=== PATIENT | female | born 1955 | race Hispanic/Latino ===

== ENCOUNTER 2020-07-22 10:15 | Inpatient (IN) | payer OTHER, MEDICARE ==
[~2020-07-22] VITALS: Ht 165.1 cm; Wt 68.9 kg
[2020-07-22 10:05] LABS: BASOPHILS % (AUTO) 0.4 % (0.0-5.0); EOSINOPHILS % (AUTO) 2.2 % (0.0-8.0); HEMATOCRIT 42.8 % (36-48); LYMPHOCYTES % (AUTO) 25.6 % (21.0-51.0); MEAN CORPUSCULAR HEMOGLOBIN 33.3 pg (27.0-33.0); MEAN CORPUSCULAR HGB CONC 34.8 g/dL (32.0-36.0); MEAN CORPUSCULAR VOLUME 95.5 fL (79-99); NEUTROPHILS % (AUTO) 64.4 % (40.0-77.0); PLATELET COUNT (AUTO) 109 K/uL (130-400); RED BLOOD CELL COUNT(AUTO) 4.48 MIL/uL (4.00-5.50); RED CELL DISTRIBUTION WIDTH 12.1 % (11.0-15.5); WHITE BLOOD COUNT (AUTO) 5.4 K/uL (4.8-10.8)
[2020-07-22 10:12] LABS: APPEARANCE,URINE Clear (CLEAR); BILIRUBIN,URINE Negative (NEGATIVE); COLOR,URINE Yellow (YELLOW); GLUCOSE, URINE (UA) >=1000 mg/dL (NEGATIVE); KETONES,URINE Negative (NEGATIVE); LEUKOCYTE ESTERASE ,URINE Trace (NEGATIVE); NITRATE,URINE Negative (NEGATIVE); OCCULT BLOOD,URINE Negative (NEGATIVE); PROTEIN,URINE Trace mg/dL (NEGATIVE)
[2020-07-22 10:14] LABS: BACTERIA,URINE Rare /HPF (None Seen); RBC,URINE 0-1 /HPF (0-1); SQUAMOUS EPITHELIAL CELL,UR Rare /HPF (0-2); WBC,URINE 0-1 /HPF (0-1)
[2020-07-22 10:16] LABS: CREATININE 0.7 mg/dL (0.5-1.5); POTASSIUM 4.2 mmol/L (3.5-5.1)
[2020-07-26 09:50] VITALS: BP 139/71
[2020-07-26] MEDS ORDERED: INSU100V3 SQ (13:00)
[2020-07-26] MEDS ORDERED: CANA1TAB4 PO (13:00)
[2020-07-26] MEDS ORDERED: LISI10TA24 PO (13:00)
[2020-07-26] MEDS ORDERED: LEVO150C4 PO (13:00)
[2020-07-27] VITALS (21 sets, daily range): BP systolic 106–158; BP diastolic 60–90
[2020-07-27] MEDS ORDERED: SODIUM CHLORIDE 0.9% 1000ML 1,000 ML IV ONE (08:29)
[2020-07-27] MEDS: CEFAZOLIN SODIUM 1 GM VIAL ONE ×2 (09:07→13:53)
[2020-07-27] MEDS ORDERED: ROPIVACAINE 0.5% 5MG/ML 30ML IJ ONE (11:33)
[2020-07-27] MEDS ORDERED: PROPOFOL 10 MG/ML 20ML VIAL IV ONE (11:34)
[2020-07-27] MEDS ORDERED: PROPRANOLOL HCL 1 MG/ML VIAL IVP ONE (11:34)
[2020-07-27] MEDS ORDERED: ROCURONIUM 10MG/1ML SYR 10 MG/ML ML ONE (11:34)
[2020-07-27] MEDS ORDERED: LIDOCAINE PF 100MG/5ML (2%) SYRINGE 5ML ONE (11:34)
[2020-07-27] MEDS ORDERED: CEFAZOLIN SODIUM 1 GM VIAL ONE (12:07)
[2020-07-27] MEDS ORDERED: TRANEXAMIC ACID 1000MG/10ML ONE ×2 (12:07→16:09)
[2020-07-27] MEDS ORDERED: MIDAZOLAM HCL 1 MG/ML 2ML VIAL ONE (13:22)
[2020-07-27] MEDS ORDERED: FENTANYL CITRATE PF 50 MCG/1 ML 2ML VIAL ONE (14:31)
[2020-07-27] MEDS ORDERED: CEFAZOLIN SODIUM 1 GM VIAL IRRIG ONE (14:45)
[2020-07-27] MEDS ORDERED: NEOSTIGMINE 5MG/5ML SYR IV ONE (15:22)
[2020-07-27] MEDS ORDERED: GLYCOPYRROLATE 1 MG/5 ML SYRINGE ONE (15:22)
[2020-07-27] MEDS ORDERED: ONDANSETRON HCL 4 MG/2 ML VIAL ONE (15:22)
[2020-07-27] MEDS ORDERED: POTASSIUM CHLORIDE 10% ELIXIR 20 MEQ/15 ML UDCUP PO PRN (15:30)
[2020-07-27] MEDS ORDERED: DiphenhydrAMINE HCL 50 MG/ML VIAL IVP PRN (15:30)
[2020-07-27] MEDS ORDERED: TEMAZEPAM 15 MG CAPSULE PO PRN (15:30)
[2020-07-27] MEDS ORDERED: TRAMADOL HCL 50 MG TABLET PO PRN (15:30)
[2020-07-27] MEDS ORDERED: FERROUS FUMARATE 324 MG TABLET PO PRN (15:30)
[2020-07-27] MEDS: SODIUM CHLORIDE 0.9% 1000ML 1,000 ML IV SCH (15:30)
[2020-07-27] MEDS: ACETAMINOPHEN 500 MG TABLET PO SCH (15:30)
[2020-07-27] MEDS ORDERED: LIDOCAINE HCL-MPF 1% 2ML VIAL IV PRN (15:30)
[2020-07-27] MEDS ORDERED: KCL 20 MEQ ERTAB PO PRN (15:30)
[2020-07-27] MEDS ORDERED: POTASSIUM CHLORIDE 20MEQ/100ML 100 ML IV PRN (15:30)
[2020-07-27] MEDS ORDERED: OXYCODONE HCL 5 MG TAB PO PRN (15:30)
[2020-07-27] MEDS ORDERED: PHENYLEPHRINE HCL 10 MG/ML 1ML VIAL IV ONE (15:51)
[2020-07-27] MEDS ORDERED: MEPERIDINE-PF 25 MG/ML SYG ONE (16:04)
[2020-07-27] MEDS ORDERED: METOCLOPRAMIDE 10 MG/2 ML VIAL ONE (16:18)
[2020-07-27] MEDS: ONDANSETRON HCL 4 MG/2 ML VIAL IVP PRN ×2 (16:23→17:30)
[2020-07-27] MEDS: INSULIN HUMULIN R 100 UNIT/ML 3ML SQ SCH ×2 (16:30→21:37)
[2020-07-27] MEDS: INVOKAMET PO SCH (21:00)
[2020-07-27] MEDS: ASPIRIN 81MG TAB.CHEW PO SCH (21:19)
[2020-07-27] MEDS: CELECOXIB 200 MG CAP PO SCH (21:19)
[2020-07-27] MEDS: PREGABALIN 25 MG CAP PO SCH (21:19)
[2020-07-27] MEDS: CEFAZOLIN SODIUM 1 GM VIAL IVP SCH (21:21)
[2020-07-27] MEDS: FAMOTIDINE 20MG TAB 20 MG TAB PO SCH (21:32)
[2020-07-28] MEDS: ACETAMINOPHEN 500 MG TABLET PO SCH ×3 (00:31→14:44)
[2020-07-28] MEDS: SODIUM CHLORIDE 0.9% 1000ML 1,000 ML IV SCH ×2 (02:18→11:30)
[2020-07-28 04:30] LABS: HEMATOCRIT 36.1 % (36-48); MEAN CORPUSCULAR HEMOGLOBIN 32.6 pg (27.0-33.0); MEAN CORPUSCULAR HGB CONC 34.1 g/dL (32.0-36.0); MEAN CORPUSCULAR VOLUME 95.8 fL (79-99); RED BLOOD CELL COUNT(AUTO) 3.77 MIL/uL (4.00-5.50); RED CELL DISTRIBUTION WIDTH 12.1 % (11.0-15.5); WHITE BLOOD COUNT (AUTO) 6.4 K/uL (4.8-10.8)
[2020-07-28 04:36] VITALS: BP 124/66
[2020-07-28 04:39] LABS: CREATININE 0.7 mg/dL (0.5-1.5); POTASSIUM 4.3 mmol/L (3.5-5.1)
[2020-07-28] MEDS: LEVOTHYROXINE 150 MCG TABLET PO SCH (05:56)
[2020-07-28] MEDS: OXYCODONE HCL 5 MG TAB PO PRN ×3 (05:56→21:33)
[2020-07-28] MEDS: INSULIN HUMULIN R 100 UNIT/ML 3ML SQ SCH ×4 (05:58→21:00)
[2020-07-28] MEDS ORDERED: CEFAZOLIN SODIUM 1 GM VIAL ONE (05:59)
[2020-07-28] MEDS: CEFAZOLIN SODIUM 1 GM VIAL IVP SCH (06:03)
[2020-07-28] MEDS ORDERED: INSULIN HUMULIN R 100 UNIT/ML 3ML SQ SCH (07:30)
[2020-07-28 08:17] VITALS: BP 141/77
[2020-07-28] MEDS ORDERED: INSU100I35 SQ (08:24)
[2020-07-28] MEDS: KETOROLAC 15MG/ML VIAL (15MG/ML) IV PRN (08:30)
[2020-07-28] MEDS: INVOKAMET PO SCH ×2 (09:00→21:00)
[2020-07-28] MEDS: LISINOPRIL 10 MG TABLET PO SCH (10:49)
[2020-07-28] MEDS: CELECOXIB 200 MG CAP PO SCH ×2 (10:49→21:33)
[2020-07-28] MEDS: FAMOTIDINE 20MG TAB 20 MG TAB PO SCH ×2 (10:49→21:33)
[2020-07-28] MEDS: PREGABALIN 25 MG CAP PO SCH ×2 (10:49→21:33)
[2020-07-28] MEDS: ASPIRIN 81MG TAB.CHEW PO SCH ×2 (10:49→21:33)
[2020-07-28] MEDS: POLYETHYLENE GLYCOL 3350 17 GM POWD.PACK PO SCH (10:50)
[2020-07-28 11:00] VITALS: BP 133/70
[2020-07-28] MEDS: ONDANSETRON HCL 4 MG/2 ML VIAL IVP PRN (15:22)
[2020-07-28 16:00] VITALS: BP 126/69
[2020-07-28] MEDS: INSULIN HUMULIN 70/30 100 UNIT/ML 3ML SQ SCH (17:00)
[2020-07-28 19:39] VITALS: BP 105/69
[2020-07-29] VITALS: BP 131/67
[2020-07-29] MEDS: ACETAMINOPHEN 500 MG TABLET PO SCH ×4 (00:02→19:46)
[2020-07-29] MEDS: KETOROLAC 15MG/ML VIAL (15MG/ML) IV PRN ×2 (00:09→10:09)
[2020-07-29 04:00] VITALS: BP 120/66
[2020-07-29] MEDS: INSULIN HUMULIN R 100 UNIT/ML 3ML SQ SCH ×4 (06:06→20:54)
[2020-07-29] MEDS: LEVOTHYROXINE 150 MCG TABLET PO SCH (06:07)
[2020-07-29 08:00] VITALS: BP 118/62
[2020-07-29] MEDS: INSULIN HUMULIN 70/30 100 UNIT/ML 3ML SQ SCH ×2 (08:00→17:00)
[2020-07-29] MEDS: INVOKAMET PO SCH ×2 (09:00→20:53)
[2020-07-29] MEDS: ASPIRIN 81MG TAB.CHEW PO SCH ×2 (10:09→19:46)
[2020-07-29] MEDS: POLYETHYLENE GLYCOL 3350 17 GM POWD.PACK PO SCH (10:09)
[2020-07-29] MEDS: PREGABALIN 25 MG CAP PO SCH ×2 (10:10→19:47)
[2020-07-29] MEDS: LISINOPRIL 10 MG TABLET PO SCH (10:11)
[2020-07-29] MEDS: FAMOTIDINE 20MG TAB 20 MG TAB PO SCH ×2 (10:11→19:46)
[2020-07-29] MEDS: CELECOXIB 200 MG CAP PO SCH ×2 (10:11→19:46)
[2020-07-29 11:54] VITALS: BP 135/75
[2020-07-29] MEDS: OXYCODONE HCL 5 MG TAB PO PRN (12:14)
[2020-07-29] MEDS: ONDANSETRON HCL 4 MG/2 ML VIAL IVP PRN (14:00)
[2020-07-29 16:00] VITALS: BP 137/75
[2020-07-29] MEDS ORDERED: HYDROMORPHONE 0.5 MG SYG (0.5MG/0.5ML) IVP ONE (17:25)
[2020-07-29] MEDS ORDERED: METOCLOPRAMIDE 10 MG/2 ML VIAL IVP SCH (17:25)
[2020-07-29] MEDS ORDERED: PROMETHAZINE HCL 25 MG/ML 1ML AMPULE IM SCH (17:55)
[2020-07-29] MEDS: CALCIUM CARBONATE 500 MG TABLET PO PRN (19:45)
[2020-07-29 20:23] VITALS: BP 102/79
[2020-07-30] VITALS (7 sets, daily range): BP systolic 95–147; BP diastolic 50–70
[2020-07-30] MEDS: LEVOTHYROXINE 150 MCG TABLET PO SCH (05:42)
[2020-07-30] MEDS: ACETAMINOPHEN 500 MG TABLET PO SCH ×2 (05:44→08:27)
[2020-07-30] MEDS: INSULIN HUMULIN 70/30 100 UNIT/ML 3ML SQ SCH ×2 (05:57→17:00)
[2020-07-30] MEDS: INSULIN HUMULIN R 100 UNIT/ML 3ML SQ SCH ×4 (05:57→19:26)
[2020-07-30] MEDS: OXYCODONE HCL 5 MG TAB PO PRN (07:35)
[2020-07-30] MEDS: POLYETHYLENE GLYCOL 3350 17 GM POWD.PACK PO SCH (08:25)
[2020-07-30] MEDS: LISINOPRIL 10 MG TABLET PO SCH (08:26)
[2020-07-30] MEDS: ASPIRIN 81MG TAB.CHEW PO SCH ×2 (08:26→19:31)
[2020-07-30] MEDS: CELECOXIB 200 MG CAP PO SCH ×2 (08:27→19:31)
[2020-07-30] MEDS: FAMOTIDINE 20MG TAB 20 MG TAB PO SCH ×2 (08:27→19:31)
[2020-07-30] MEDS: PREGABALIN 25 MG CAP PO SCH ×2 (08:27→19:31)
[2020-07-30] MEDS: INVOKAMET PO SCH ×2 (08:32→19:32)
[2020-07-30] MEDS: ONDANSETRON HCL 4 MG/2 ML VIAL IVP PRN (09:10)
[2020-07-30] MEDS: KETOROLAC 30MG VIAL (30MG/ML) ONE ×2 (10:51→10:53)
[2020-07-30] MEDS ORDERED: PROMETHAZINE HCL 25 MG/ML 1ML AMPULE IM PRN (13:30)
[2020-07-30] MEDS ORDERED: HYDROCODONE/ACETAMINOPHEN 5/325 MG TAB PO PRN (13:30)
[2020-07-30] MEDS ORDERED: BISACODYL 10 MG SUPP.RECT RC PRN (15:30)
[2020-07-30] MEDS ORDERED: METOCLOPRAMIDE 10 MG/2 ML VIAL ONE (19:13)
[2020-07-30] MEDS: METOCLOPRAMIDE 10 MG/2 ML VIAL IVP SCH (19:31)
[2020-07-30] MEDS: CALCIUM CARBONATE 500 MG TABLET PO PRN (19:31)
[2020-07-31 04:00] VITALS: BP 136/59
[2020-07-31] MEDS: LEVOTHYROXINE 150 MCG TABLET PO SCH (04:59)
[2020-07-31] MEDS: KETOROLAC 15MG/ML VIAL (15MG/ML) IV PRN (04:59)
[2020-07-31] MEDS: INSULIN HUMULIN R 100 UNIT/ML 3ML SQ SCH ×3 (05:25→16:05)
[2020-07-31] MEDS: INSULIN HUMULIN 70/30 100 UNIT/ML 3ML SQ SCH ×2 (05:26→17:00)
[2020-07-31 08:00] VITALS: BP 164/64
[2020-07-31] MEDS: HYDROCODONE/ACETAMINOPHEN 5/325 MG TAB PO PRN ×2 (08:03→17:15)
[2020-07-31] MEDS: CELECOXIB 200 MG CAP PO SCH (08:53)
[2020-07-31] MEDS: POLYETHYLENE GLYCOL 3350 17 GM POWD.PACK PO SCH (08:53)
[2020-07-31] MEDS: PREGABALIN 25 MG CAP PO SCH (08:53)
[2020-07-31] MEDS: ASPIRIN 81MG TAB.CHEW PO SCH (08:53)
[2020-07-31] MEDS: FAMOTIDINE 20MG TAB 20 MG TAB PO SCH (08:53)
[2020-07-31] MEDS: METOCLOPRAMIDE 10 MG/2 ML VIAL IVP SCH (08:53)
[2020-07-31] MEDS: LISINOPRIL 10 MG TABLET PO SCH (08:54)
[2020-07-31] MEDS: INVOKAMET PO SCH (08:55)
[2020-07-31 12:00] VITALS: BP 150/80
[2020-07-31 16:00] VITALS: BP 102/66
[2020-07-31] MEDS ORDERED: PROM6.254 PO (17:51)
[2020-07-31] MEDS ORDERED: HYDR-4060 PO (17:51)
[2020-07-31] MEDS ORDERED: ASPI-1005 PO (17:51)
[2020-07-31] MEDS ORDERED: METO10TA41 PO (17:51)
== END 2020-07-31 19:30 | DRG 470 ==
LOC: EDSTATUS 10:15 → OBSVTOIN 07-27 07:48 → DAHIP 07-27 07:48 → 4AH 07-27 16:24
PROVIDERS: ADMIT Orthopaedic Surgery; ATTEND Orthopaedic Surgery
PROC: 0SRC0J9 Replacement of Right Knee Joint with Synthetic Substitute, Cemented, Open Approach (ICD-10-PCS; principal; 2020-07-27 13:25)
DX: M17.11 Unilateral primary osteoarthritis, right knee (principal); E11.9 Type 2 diabetes mellitus without complications; I10 Essential (primary) hypertension; Z20.822 Contact with and (suspected) exposure to COVID-19; R33.9 Retention of urine, unspecified; R11.2 Nausea with vomiting, unspecified; T50.995A Adverse effect of other drugs, medicaments and biological substances, initial encounter; Y92.238 Other place in hospital as the place of occurrence of the external cause; Z82.49 Family history of ischemic heart disease and other diseases of the circulatory system; Z83.3 Family history of diabetes mellitus; Z90.710 Acquired absence of both cervix and uterus; Z90.49 Acquired absence of other specified parts of digestive tract
CPT/HCPCS: 36415; 80048; 81001; 82948; 85025; 85027; 87088; 87635; 87641; 97039; A4344; G0378; J0690; J1170; J1800; J1815; J1885; J2001; J2175; J2250; J2370; J2405; J2550; J2704; J2710; J2765; J2795; J3010; J3490; J7030

== ENCOUNTER 2021-02-04 20:16 | Emergency (ER) | payer OTHER, MEDICARE ==
[~2021-02-04] VITALS: Ht 162.6 cm; Wt 70.3 kg
[~2021-02-04 20:16] MED LIST: ASPI-1005 PO; CANA1TAB4 PO; HYDR-4060 PO; INSU100I35 SQ; LEVO150C4 PO; LISI10TA24 PO; METO10TA41 PO; PROM6.254 PO
[2021-02-04 20:57] LABS: BASOPHILS % (AUTO) 0.2 % (0.0-5.0); HEMATOCRIT 44.9 % (36-48); LYMPHOCYTES % (AUTO) 20.8 % (21.0-51.0); MEAN CORPUSCULAR HEMOGLOBIN 32.4 pg (27.0-33.0); MEAN CORPUSCULAR HGB CONC 34.3 g/dL (32.0-36.0); MEAN CORPUSCULAR VOLUME 94.5 fL (79-99); MONOCYTES % (AUTO) 6.8 % (3.0-13.0); NEUTROPHILS % (AUTO) 69.7 % (40.0-77.0); PLATELET COUNT (AUTO) 113 K/uL (130-400); RED BLOOD CELL COUNT(AUTO) 4.75 MIL/uL (4.00-5.50); RED CELL DISTRIBUTION WIDTH 11.9 % (11.0-15.5)
[2021-02-04 20:59] LABS: APPEARANCE,URINE Clear (CLEAR); BILIRUBIN,URINE Negative (NEGATIVE); COLOR,URINE Yellow (YELLOW); GLUCOSE, URINE (UA) >=1000 mg/dL (NEGATIVE); KETONES,URINE 15 mg/dL (NEGATIVE); LEUKOCYTE ESTERASE ,URINE Negative (NEGATIVE); NITRATE,URINE Negative (NEGATIVE); OCCULT BLOOD,URINE Nonhemolyzed Trace (NEGATIVE); PROTEIN,URINE POS 2+ mg/dL (NEGATIVE)
[2021-02-04] MEDS ORDERED: PROMETHAZINE HCL 25 MG/ML 1ML AMPULE IM ONE (21:00)
[2021-02-04] MEDS ORDERED: KETOROLAC 30MG VIAL (30MG/ML) IV ONE (21:00)
[2021-02-04] MEDS ORDERED: CYCLOBENZAPRINE HCL 10 MG TABLET PO ONE (21:00)
[2021-02-04] MEDS ORDERED: 0.9%NACL 1000ML 1,000 ML IV ONE (21:00)
[2021-02-04 21:06] LABS: BACTERIA,URINE Rare /HPF (None Seen); MUCUS,URINE Few LPF (None Seen); SQUAMOUS EPITHELIAL CELL,UR Rare /HPF (0-2); WBC,URINE 0-1 /HPF (0-1)
[2021-02-04 21:10] LABS: CARBON DIOXIDE 28 mmol/L (21-32); CHLORIDE 100 mmol/L (101-111); CREATININE 0.7 mg/dL (0.5-1.5); GLOMERULAR FILTR. RATE CALC 90 mL/min (>60); GLUCOSE,RANDOM 134 mg/dL (70-105); POTASSIUM 3.9 mmol/L (3.5-5.1); SODIUM SERUM 134 mmol/L (136-145); UREA NITROGEN, BLOOD 22 mg/dL (7-18)
[2021-02-04 21:14] LABS: ALANINE AMINOTRANSFERASE 19 U/L (12-78); ALBUMIN 4.4 g/dL (3.5-5.0); ASPARTATE AMINOTRANSFERASE 22 U/L (10-37); BILIRUBIN,TOTAL 0.8 mg/dL (0.2-1.0); CRP QUANTITATIVE < 2.00 mg/L (0.00-9.0); TOTAL PROTEIN, SERUM 8.3 g/dL (6.0-8.3)
[2021-02-04 21:48] VITALS: BP 153/76
[2021-02-04] MEDS ORDERED: ACET-2247 PO (21:59)
[2021-02-04] MEDS ORDERED: CYCL10TA16 PO (21:59)
[2021-02-04] MEDS ORDERED: NAPR-1180 PO (21:59)
[2021-02-04] MEDS ORDERED: DiphenhydrAMINE HCL 50 MG/ML VIAL IV ONE (22:00)
[2021-02-04] MEDS ORDERED: ACETAMINOPHEN 500 MG TABLET PO ONE (22:00)
== END 2021-02-04 22:12 | disposition home or self-care (01) ==
LOC: EDH 20:16
DX: G44.209 Tension-type headache, unspecified, not intractable (principal); R11.0 Nausea; E11.9 Type 2 diabetes mellitus without complications; I10 Essential (primary) hypertension; R42 Dizziness and giddiness; Z79.1 Long term (current) use of non-steroidal anti-inflammatories (NSAID); Z79.4 Long term (current) use of insulin; Z79.82 Long term (current) use of aspirin; Z79.899 Other long term (current) drug therapy
CPT/HCPCS: 36415; 70450; 80053; 81001; 85025; 86140; 87804 ×2; 93005; 96361; 96372; 96374; 96375; 99285; J1200; J1885; J2550 ×2

== ENCOUNTER → 2024-10-01 | Outpatient (CLI) | payer OTHER, MEDICARE ==
[~2024-10-01] MED LIST changes: +ACET-2247 PO; +CYCL10TA16 PO; -LEVO150C4 PO; +LEVO150C5 PO; +NAPR-1180 PO; +PROM6.2527 PO; -PROM6.254 PO
--- NOTE | 2024-10-01 12:50 | HMCIMG ---
EXAM: MR Left Knee WITHOUT CONTRAST CLINICAL HISTORY: 69-year-old female with a tear of the lateral meniscus. TECHNIQUE: Multiplanar multisequence magnetic resonance images were obtained WITHOUT contrast. CONTRAST: None COMPARISON: None FINDINGS: JOINTS: A small joint effusion is present. BONE: No acute fracture or focal osseous lesion. SOFT TISSUES: There is a moderate-sized Radford's cyst. There is a grade 1 strain of the medial collateral ligament. MENISCI: There is a longitudinal tear of the posterior horn of the medial meniscus with a horizontal component in the body. IMPRESSION: 1. Longitudinal tear of the posterior horn of the medial meniscus with a horizontal component in the body. 2. Grade 1 strain of the medial collateral ligament. 3. Moderate-sized Radford's cyst. 4. Small joint effusion. /[place]
== END | disposition home or self-care (01) ==
LOC: RAH 08:01
PROVIDERS: ATTEND Orthopaedic Surgery
DX: S83.242D Other tear of medial meniscus, current injury, left knee, subsequent encounter (principal); S83.282D Other tear of lateral meniscus, current injury, left knee, subsequent encounter; M71.22 Synovial cyst of popliteal space [Baker], left knee; M25.462 Effusion, left knee; M23.8X2 Other internal derangements of left knee; X58.XXXD Exposure to other specified factors, subsequent encounter
CPT/HCPCS: 73721